=== PATIENT | female | born 1990 | race Caucasian/White ===

== ENCOUNTER 2019-04-07 14:41 | Inpatient (IN) | payer OTHER ==
[~2019-04-07] VITALS: Ht 165.1 cm; Wt 89.0 kg
[2019-04-08] MEDS ORDERED: PRENATAL FORMU1 EAC2 PO (01:31)
[2019-04-08] MEDS ORDERED: IRON325 M1 PO (01:32)
--- NOTE | 2019-04-08 08:56 | PR ---
[facility] [address] [place] [address] Signed Progress Notes IP Datetime Report Generated by CPN: 04/08/2019 08:56 PROGRESS NOTES: [id number] Impression: Normal progression of labor; Reassuring heart rate Procedures: Sterile Vag Exam Informed Consent Obtain: Vaginal Delivery VITAL SIGNS: [id number] Vital Signs: Reviewed; Within Normal Limits EXAM: [id number] Dilatation: 7.0 Effacement: 90 Station: -1 Uterine Contractions: q 1-4 minutes MEMBRANES: [id number] Comments: Called to pt room for rapidly progressing labor. Briefly reviewed OB hx including uncertain dates, failed 1 hr and normal 3 hr glucose, and hx. Anticipate soon. Dr. Ferrer now presenting for delivery. Fetus A: [id number] FHR Baseline: 140 Variability: Moderate 6-25bpm Accelerations: 15X15 Decelerations: None FHR Category: Category I Presentation: Vertex Comments on Fetus A: No evidence of metabolic acidosis Fetus B: [id number] Signing Physician: Gavino Baez DO Copies: ~ *Electronically Signed* 04/08/19 0856 GAVINO BAEZ DO PATIENT NAME: LENA MARIE PROGRESS NOTE DATE OF : 89 PHYSICIAN: GAVINO BAEZ DO RPT #: [id number] REPORT IS CONFIDENTIAL AND NOT TO BE RELEASED WITHOUT AUTHORIZATION
--- NOTE | 2019-04-09 08:17 | PR ---
[facility] [address] [place], [place] [address] Signed PP Progress Notes Datetime Report Generated by CPN: 04/09/2019 08:16 SUBJECTIVE: [id number] Pain: Within normal limits Nausea/Vomiting: Denies Vital Signs: [id number] Vital Signs: Reviewed; Within Normal Limits EXAM: [id number] Abdomen/Uterus: Normal Lochia: Normal Extremities: Normal IMPRESSION/PLAN/PROCEDURES: [id number] Impression: Normal progression Plan: Continue present management; Discharge Procedures: None Progress Notes: Doing well, no complaints, wants to go home later today Signing Physician: Zac Mack MD Copies: ~ *Electronically Signed* 04/09/19 0816 ZAC MACK MD PATIENT NAME: LENA MARIE PROGRESS NOTE DATE OF : 91 PHYSICIAN: ZAC MACK MD RPT #: [id number] REPORT IS CONFIDENTIAL AND NOT TO BE RELEASED WITHOUT AUTHORIZATION
== END 2019-04-09 13:25 | disposition home or self-care (01) | DRG 807 ==
LOC: FBC 04-08 00:06
PROVIDERS: ADMIT General Practice
PROC: 10E0XZZ Delivery of Products of Conception, External Approach (ICD-10-PCS; principal; 2019-04-08)
PROC: 0HQ9XZZ Repair Perineum Skin, External Approach (ICD-10-PCS; 2019-04-08)
PROC: 3E0P7VZ Introduction of Hormone into Female Reproductive, Via Natural or Artificial Opening (ICD-10-PCS; 2019-04-08)
DX: O48.0 Post-term pregnancy (principal); Z37.0 Single live birth; Z3A.40 40 weeks gestation of pregnancy; O77.0 Labor and delivery complicated by meconium in amniotic fluid; O69.81X0 Labor and delivery complicated by cord around neck, without compression, not applicable or unspecified; O70.0 First degree perineal laceration during delivery; O99.02 Anemia complicating childbirth; D64.9 Anemia, unspecified; Z87.440 Personal history of urinary (tract) infections
CPT/HCPCS: 36415; 85027; J2590